=== PATIENT | female | born 1960 | race Caucasian/White ===

== ENCOUNTER 2021-07-22 07:13 | Emergency (ER) | payer OTHER ==
[~2021-07-22] VITALS: Ht 152.4 cm; Wt 68.0 kg
[2021-07-22] MEDS ORDERED: IBUPROFEN 400 MG TABLET PO ONE (07:30)
[2021-07-22] MEDS ORDERED: IV NS 1000 ML 1,000 ML IV ONE (07:30)
[2021-07-22] MEDS ORDERED: ALBUTEROL SULFATE 2.5 MG/3 ML NEBU NEB ONE (08:00)
[2021-07-22] MEDS ORDERED: IBUPROFEN 600 MG TABLET ONE (08:06)
[2021-07-22] MEDS ORDERED: ALBUTEROL SULFATE 2.5 MG/3 ML NEBU ONE (08:07)
[2021-07-22 08:33] LABS: HEMATOCRIT 38.1 % (31.2-41.9); MEAN CORPUSCULAR HEMOGLOBIN 30.5 uug (24.7-32.8); PLATELET COUNT (AUTO) 216 K/uL (179-408)
[2021-07-22 08:43] LABS: POTASSIUM 4.2 mmol/L (3.5-5.1)
[2021-07-22 08:55] LABS: BILIRUBIN,TOTAL 0.5 mg/dL (0.2-1.0); TOTAL PROTEIN, SERUM 6.9 g/dL (6.4-8.2)
[2021-07-22] MEDS ORDERED: DEXA6TAB6 PO (09:13)
[2021-07-22] MEDS ORDERED: ALBU8.5H8 INH (09:13)
--- NOTE | 2021-07-22 09:41 | NUR ---
Patient discharged to home in stable condition. Written and verbal after care instructions given. Patient verbalizes understanding of instructions. Stressed follow up or return to ER for worsening s/s.
[2021-07-22 09:47] VITALS: BP 119/61
== END 2021-07-22 09:49 | disposition home or self-care (01) ==
LOC: ER 07:15
DX: U07.1 COVID-19 (principal); J12.82 Pneumonia due to coronavirus disease 2019; R73.03 Prediabetes; Z88.5 Allergy status to narcotic agent
CPT/HCPCS: 36415; 70030-TC; 71045; 85025; A4663; J7030

== ENCOUNTER 2021-08-01 18:08 | Emergency (ER) | payer BC, OTHER ==
[~2021-08-01] VITALS: Ht 152.4 cm; Wt 68.0 kg
[~2021-08-01 18:08] MED LIST: ALBU8.5H8 INH; DEXA6TAB6 PO
--- NOTE | 2021-08-01 19:19 | NUR ---
Patient is on a monitor. IV placed, labs drawn EKG done. Hand off report given to [facility] PERRY
[2021-08-01 19:28] LABS: HEMATOCRIT 37.1 % (31.2-41.9); MEAN CORPUSCULAR HEMOGLOBIN 30.4 uug (24.7-32.8); MEAN CORPUSCULAR VOLUME 88.9 fL (75.5-95.3); PLATELET COUNT (AUTO) 301 K/uL (179-408)
[2021-08-01 19:37] LABS: POTASSIUM 4.2 mmol/L (3.5-5.1)
[2021-08-01 20:18] LABS: BILIRUBIN,DIRECT 0.1 mg/dL (0.0-0.2); BILIRUBIN,TOTAL 0.3 mg/dL (0.2-1.0); TOTAL PROTEIN, SERUM 6.6 g/dL (6.4-8.2)
--- NOTE | 2021-08-01 20:35 | NUR ---
Thorough report recieved from BREEZY Theodore RN. 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 Good lower ext strenght. Pt is awaiting dispo, no complaints of pain, sob, n/v, dizziness or discomfort. Pt was swabbed for covid and specimen sent to lab. no s/sx of distress present.
--- NOTE | 2021-08-01 21:46 | NUR ---
Covid test resulted negative, pt was informed of results.
--- NOTE | 2021-08-01 22:30 | NUR ---
Pt taken to CT for CTA
--- NOTE | 2021-08-01 22:50 | NUR ---
Pt returned from CT, technical services coordinator at bedside to draw repeat trop.
[2021-08-01] MEDS ORDERED: SWABABLE VALVE TRANSFER SET EA MC ONE (23:44)
[2021-08-01] MEDS ORDERED: IOHEXOL 350 100 ML INFUS..BTL ONE (23:44)
[2021-08-01] MEDS ORDERED: IV NORMAL SALINE 250 ML IV ONE (23:44)
--- NOTE | 2021-08-02 01:05 | NUR ---
Repear EKG performed per EDMD with normal results
--- NOTE | 2021-08-02 02:00 | NUR ---
IV on Rt AC DCed and site dressed with 4x4s and paper tape.
--- NOTE | 2021-08-02 02:00 | NUR ---
Pt given DC instructions and pt confirmed understanding of aftercare. Pt states that see will go see her PMD tomorrow. Pt has good color and appearance, VSS BP:96/63, 83bpm,16rpm, 98%RA. Pt denies any pain, sob, nausea, dizziness or discomfort. No s/sx of distress present. Pt signed out and ambulated out of dept with steady gait and without any difficulty.
[2021-08-02 02:21] VITALS: BP 96/63
== END 2021-08-02 02:00 | disposition home or self-care (01) ==
LOC: ER 18:16
DX: R07.9 Chest pain, unspecified (principal); Z86.16 Personal history of COVID-19; Z20.822 Contact with and (suspected) exposure to COVID-19; D72.829 Elevated white blood cell count, unspecified; E83.52 Hypercalcemia; R79.1 Abnormal coagulation profile; E78.00 Pure hypercholesterolemia, unspecified; R73.03 Prediabetes; Z88.5 Allergy status to narcotic agent
CPT/HCPCS: 36415; 71045; 71275; 80048; 80076; 84484 ×2; 85025; 85379; 87426; 93005 ×2; 99285; Q9967; 70030-TC; A4663; J7050